=== PATIENT | female | born 1945 ===

== ENCOUNTER 2024-05-03 12:38 | Day surgery (SDC) | payer MEDICARE ==
[~2024-05-03] VITALS: Ht 167.6 cm; Wt 61.4 kg
[~2024-05-03 12:38] MED LIST: LR 1,000 ML IV SCH
[2024-05-03 14:41] VITALS: BP 137/50; PULSE 81; TEMP 98.3
[2024-05-03] MEDS ORDERED: VTAMINC250TA PO (14:44)
[2024-05-03] MEDS ORDERED: VITAMIN D362.5 MC1 PO (14:45)
[2024-05-03] MEDS ORDERED: Lidocaine 2% (20 MG/ML) 20 ML UROJET UR ONE ×2 (14:58→15:19)
[2024-05-03] MEDS ORDERED: Phenylephrine 10 MG/ML VIAL ONE (15:25)
[2024-05-03] MEDS ORDERED: hydrALAZINE 20 MG/ML 1 ML VIAL IV PRN (16:00)
[2024-05-03] MEDS ORDERED: fentaNYL 50 MCG/ML 1 ML SYRINGE/VIAL [PACU/SDC ONLY] IV PRN (16:00)
[2024-05-03] MEDS ORDERED: Ondansetron 4 MG/2 ML VIAL IV PRN (16:00)
[2024-05-03] MEDS ORDERED: HYDROmorphone 1 MG/1 ML SYRINGE [PACU/SDC ONLY] IV PRN (16:00)
[2024-05-03 16:30] VITALS: BP 140/76; PULSE 96; TEMP 97.9
[2024-05-03 16:40] VITALS: TEMP 97.7
[2024-05-03 16:45] VITALS: BP 151/55; PULSE 78
[2024-05-03 17:00] VITALS: BP 142/71; PULSE 78
--- NOTE | 2024-05-03 17:25 | NUR ---
1630 RETURNS TO ROOM 3 PER ART WITH HOB ELEVATED 40 DEGREES. AWAKE, ALERT. RESP UNLABORED. VITAL SIGNS OBTAINED. ABD SOFT. DENIES PAIN OR URINARY URGENCY. CALL LIGHT AT SIDE. IN ROOM 1645 HOB ELEVATED 60 DEGREES. TOLERATES PO WATER WITHOUT NAUSEA. REFUSES SNACK 1655 DISCHARGE INSTRUCTIONS REVIEWED. PATIENT VERBALIZES UNDERSTANDING. COPY PROVIDED IN DISCHARGE FOLDER 1710 DENIES PAIN OR URINARY URGENCY. SITS ON EDGE OF BED. DRESSES WITH ASSIST FROM . THEN ASSISTS PATIENT TO PERSONAL SCOOTER
== END 2024-05-03 17:25 | disposition home or self-care (01) ==
LOC: SDCO 12:38
DX: N20.1 Calculus of ureter (principal); J45.909 Unspecified asthma, uncomplicated
CPT/HCPCS: C1769; C2617; J0690; J2371; J2704; J3010; J7120